=== PATIENT | female | born 1995 | race Caucasian/White ===

== ENCOUNTER → 2016-12-13 14:35 | Observation (INO) ==
[2016-12-13 12:28] VITALS: BP 115/60
--- NOTE | 2016-12-13 12:32 | OB/GYN Progress Note ---
Date of Encounter: 12/13/16 Time of Encounter: 12:30 - Assessment and Plan (1) 33 weeks gestation of Current Visit: Yes Status: Acute NST reactive. (2) Headache Current Visit: Yes Status: Acute PIH labs WNL. Pt reports TRAMMELL has improved with 1 dose fioricet. Discharge home with preeclampsia precautions. Qualifiers: Headache type: new daily persistent Qualified Code(s): G44.52 - New daily persistent headache (NDPH) (3) Nonspecific pain in the neck region Current Visit: Yes Status: Acute Comfort measures discussed. (4) Heartburn during in third trimester Current Visit: Yes Status: Acute Pt reporting pain in neck radiating to chest on arrival to triage. She reports the chest discomfort has resolved following GI cocktail. Precautions given and pt instructed to present to ER for chest pain, SOB, or palpitations. Discharge home with pepcid rx. (5) Anemia complicating in third trimester Current Visit: Yes Status: Acute Hgb 8. Pt is currently taking 1 flinstone vitamin per day. Discharge home with iron rx. Pt states she will take the iron. Subjective - Subjective Interval history: 21 year-old presenting at 33w4d with c/o headache, neck pain radiating to chest, and SOB. Pt has history of preeclampsia. Antepartum ROS: movement normal, no loss of fluid, no vaginal bleeding, no contractions Objective - Vital Signs Vital Signs: Vital Signs Temp Pulse Resp BP Pulse Ox 12/13/16 12:25 97.7 F 99 20 115/60 99 Intake and Output 12/12/16 12/13/16 12/13/16 23:59 07:59 15:59 Other: Weight 116.5 kg Patient Weight 12/13/16 23:59 Weight 116.5 kg - Exam FHR: category 1 FHR comments: NST reactive Auscultation: bilateral: normal Abdomen: Present: soft, gravid. Absent: tenderness Uterus: Absent: tenderness
[2016-12-13 12:34] LABS: Basophils % 0.4 %; Eosinophils # 0.1 K/mcL (0.0-0.6); Eosinophils % 0.7 %; Hematocrit 26.7 % (35.3-44.9); Immature Granulocytes % 2.6 % (0-4); Lymphocytes # 1.3 K/mcL (0.6-4.6); Lymphocytes % 11.3 %; Mean Corpuscular Hemoglobin 22.9 pg (28.0-33.3); Mean Corpuscular Volume 76.3 fL (83.0-100.0); Mean Platelet Volume 10.3 fL (9.4-12.4); Monocytes # 0.9 K/mcL (0.0-1.3); Monocytes % 7.9 %; Neutrophils # 8.7 K/mcL (1.6-8.9); Nucleated Red Blood Cells 0.3 /100 WBC (0); Platelet Count 207 K/mcL (140-400); Red Cell Distribution Width 16.5 % (11.5-14.5); Segmented Neutrophils % 77.1 %
[2016-12-13 12:45] LABS: Alanine Aminotransferase 9 Units/L (0-55); Aspartate Amino Transferase 9 Units/L (5-34); BUN/Creatinine Ratio 8 (6-26); Blood Urea Nitrogen 5 mg/dL (7-20); Lactate Dehydrogenase 161 Units/L (159-327); Uric Acid 4.3 mg/dL (2.6-6.0); eGFR For African Americans > 60 (> 60); eGFR For Non-African Americans > 60 (> 60)
[2016-12-13 13:15] LABS: Protein/Creatinine Ratio,Urine 0.16 mg/mg (0-0.20)
[~2016-12-13 14:35] MED LIST: Acetaminophen/Butalbital/CaffeineTABLET PO PRN; GI Cocktail 40 ML EACH PO ONE
== END | disposition home or self-care (01) ==
LOC: 1NENULAB
PROVIDERS: ADMIT Obstetrics & Gynecology; ATTEND Obstetrics & Gynecology

== ENCOUNTER 2017-01-20 07:29 | Inpatient (IN) ==
[2017-01-20] MEDS ORDERED: CeFAZolin Pre 3,000 MG/100 ML 3,000 MG/100 ML BAG IVPB ONE (08:10)
[2017-01-20] MEDS ORDERED: Metoclopramide 10 MG/2 ML VIAL IVP ONE (08:10)
[2017-01-20] MEDS ORDERED: Famotidine 20 MG/2 ML VIAL IVP ONE (08:10)
[2017-01-20] MEDS ORDERED: Naloxone 0.4 MG/ML INJ IVP PRN (08:13)
[2017-01-20] MEDS: Ringers Solution, Lactated 1,000 ML IVC ONE ×2 (08:20→09:37)
--- NOTE | 2017-01-20 09:22 | Anesthesia Evaluation PreOp ---
Date of Encounter: 01/20/17 Time of Encounter: 09:20 - Past History Planned Operation: Repeat Cardiac History: Denies any Significant Hx Pulmonary History: Denies Any Significant HX BIOLOGY ADJUNCT INSTRUCTOR History: Denies Any Significant HX Other Medical History: Denies Any Significant HX Anesthesia History: No Prior Anesthetic Complications, Past Anesthesia (C- Section x 2 (SAB)) : Yes (, IUP 39 weeks) Alcohol Use: none Drug use: none Medications and Allergies Pedi Mv No.79/Ferrous Fumarate [Flintstones with Iron Tab Chew] 1 tab PO DAILY 12/13/16 [History] 3 Allergy/AdvReac Type Severity Reaction Status Date / Time Sulfa (Sulfonamide Allergy Mild Nausea Verified 07/07/15 08:13 Antibiotics) nitrofurantoin Allergy Nausea Verified 07/07/15 08:13 [From Macrobid] - Meds/Allergy Pre-op Review Medications Reviewed: Yes Allergies Reviewed: Yes Beta Blockers on Current Med List: No Anesthesia Results - Labs Laboratory Tests 01/08/16 01/08/16 12/13/16 17:13 17:13 12:00 WBC 11.3 H Hgb 8.0 L Hct 26.7 L Plt Count 207 PT 12.4 H INR 1.1 Sodium 139 Potassium 3.8 BUN Creatinine 12/13/16 12:00 WBC Hgb Hct Plt Count PT INR Sodium Potassium BUN 5 L Creatinine 0.64 Anesthesia Exam 3 Temp 97.3 BP 122/70 Pulse 102 Height: 5'5''/1.65 m Weight: 263 lbs/119.5 kg NPO (# of Hours): 8 Pain Scale: 0 Pain Scale Used: Numeric (1 - 10) - HEENT Pupil (Motor): EOMI Mallampati: II Teeth: Normal Oral Opening: Greater than 3 - BIOLOGY ADJUNCT INSTRUCTOR LOC: Oriented BIOLOGY ADJUNCT INSTRUCTOR Motor: Normal RUE, Normal LUE, Normal RLE, Normal LLE, Normal Face BIOLOGY ADJUNCT INSTRUCTOR Sensory: Normal: RUE, LUE, RLE, LLE, Face - Cardiac Rhythm: Regular Murmur: None - Pulmonary Breath Sounds: bilateral Clear Respiratory Effort: Symmetrical Anesthesia Assess/Plan ASA Score: 2 Modified [place] Scale for Level of Consciousness: Cooperative, oriented, and tranquil Anesthetic Plan: Regional Monitoring Plan: Standard Monitors Recovery Plan: PACU
--- NOTE | 2017-01-20 09:23 | OB/GYN History & Physical ---
Date of Encounter: 01/20/17 Time of Encounter: 09:00 Assessment and Plan (1) 39 weeks gestation of Current visit: No Status: Acute Admit to Labor and Delivery Epidural Primary Low Transverse with Dr. Bailey History of Present Illness Chief complaint: Repeat C/S HPI: Ms. Sethi is a 21 year old female, , 39+0, presenting to L&D for repeat c- section with Dr. Bailey. Pt is Rh negative, pt states she received Rhogam prophylaxis during her pre- visit 11/10. Labs: Positive: GBS Negative: HIV, Hepatitis B, Syphilis, N.Gonorrhoeae, C. Trachomatis Immune: Rubella Non-immune: VZV Blood type: A- Past Med Surg Social Fam HX - Past Medical History Medical history: no medical history Psychiatric history: no psych history - Past Surgical History Surgical History: - Social History Smoking Status: Never smoker Smokeless Tobacco Status: No Alcohol use: none Drug use: none - Family History Mother Adopted: No Family Member Ethnicity: Non- Living Status: Still Living Hx Family Endocrine Disorder: Yes (diabetic) Obstetrical History - Pregnancies : 3 Medications and Allergies Pedi Mv No.79/Ferrous Fumarate [Flintstones with Iron Tab Chew] 1 tab PO DAILY 12/13/16 [History] 3 Allergy/AdvReac Type Severity Reaction Status Date / Time Sulfa (Sulfonamide Allergy Mild Nausea Verified 07/07/15 08:13 Antibiotics) nitrofurantoin Allergy Nausea Verified 07/07/15 08:13 [From Macrobid] Exam - Constitutional Constitutional: well developed, well nourished, no acute distress - HEENT HEENT: Normocephaly - Neck Neck exam: full ROM - Lungs Respiratory exam: CTAB - Cardiovascular Cardiovascular exam: +S1, +S2 - Abdomen Abdomen: Present: bowel sounds normal - Extremities Extremities exam: full ROM Results Result Diagrams: 01/20/17 08:23 All other labs normal. - Attending Attestation Pt seen and examined. Agree with above. Will proceed with rpt . Questions anserwed and consent obtained.
[2017-01-20] MEDS ORDERED: *HR* FentaNYL (PF) 100 MCG/2 ML VIAL ONE (09:28)
[2017-01-20] MEDS ORDERED: *HR* Phenylephrine 10 MG/ML VIAL ONE (09:28)
[2017-01-20] MEDS ORDERED: EPHEDrine 50 MG/ML VIAL ONE (09:28)
[2017-01-20] MEDS ORDERED: *HR* Morphine Sulfate/PF 5 MG/10 ML AMPUL ONE (09:28)
[2017-01-20] MEDS ORDERED: Ringers Solution, Lactated 1,000 ML ONE ×3 (09:34→09:35)
[2017-01-20] MEDS ORDERED: *HR* Oxytocin 10 UNIT/ML VIAL IM ONE ×2 (09:34)
[2017-01-20 09:35] LABS: Basophils % 0.3 %; Eosinophils # 0.1 K/mcL (0.0-0.6); Eosinophils % 0.7 %; Hematocrit 30.2 % (35.3-44.9); Hemoglobin 8.7 g/dL (11.5-15.4); Immature Granulocytes % 1.8 % (0-4); Lymphocytes # 1.5 K/mcL (0.6-4.6); Lymphocytes % 14.7 %; Mean Corpuscular HGB Conc 28.8 g/dL (31.6-35.5); Mean Corpuscular Hemoglobin 21.6 pg (28.0-33.3); Mean Corpuscular Volume 74.9 fL (83.0-100.0); Mean Platelet Volume 10.3 fL (9.4-12.4); Monocytes # 0.8 K/mcL (0.0-1.3); Monocytes % 7.9 %; Neutrophils # 7.5 K/mcL (1.6-8.9); Nucleated Red Blood Cells 0.3 /100 WBC (0); Platelet Count 220 K/mcL (140-400); Red Blood Count 4.03 M/mcL (3.82-4.97); Red Cell Distribution Width 18.3 % (11.5-14.5); Segmented Neutrophils % 74.6 %
[2017-01-20] MEDS ORDERED: Ondansetron 4 MG/2 ML VIAL ONE (12:06)
[2017-01-20] MEDS ORDERED: *HR* OxyCODONE/APAP 5/325 TABLET PO PRN (12:15)
[2017-01-20] MEDS ORDERED: *HR* Meperidine 25 MG/ML SYRINGE IVP PRN (12:15)
[2017-01-20] MEDS ORDERED: Ondansetron 4 MG/2 ML VIAL IVP PRN (12:15)
[2017-01-20] MEDS ORDERED: Ondansetron 4 MG/2 ML VIAL IVP ONE (12:15)
--- NOTE | 2017-01-20 12:20 | Anesthesia Procedures ---
Date of Encounter: 01/20/17 Time of Encounter: 11:20 Procedures: Anesthesia - Epidural/Spinal Patient ID/Chart reviewed: Yes Patient examined: Yes OB Eval: Gestational age: 39 OB Eval: : 3 OB Eval: Hx Para: 2 OB Eval: Contractions: Non-stressed pattern Consent Obtained: Yes Supplemental Oxygen: Nasal Cannula Supplemental Oxygen Rate (L/min): 2 Site Prep: Aseptic Technique, Sterile prep and drape, Povidone-Iodine 1% Patient position: upright Local Anesthetic: Lidocaine 1% Amount of Local Anesthetic used: 3 Interspace Used: L3-L4 Loss of Resistance (BELTRAN): No Blood: No CSF: Yes Paresthesia: Yes Procedure: Bupivicaine 0.75% 1.6ml, fentanyl 10 mcg, duramorph 0.25mg FHT stable throughout VSS see nursing notes
--- NOTE | 2017-01-20 12:37 | OB/GYN Procedure Note ---
Section - Date of procedure: 01/20/17 Preop diagnosis: desires repeat Post-op diagnosis: same Procedure: section, primary low transverse Surgeon: Jj Bailey Estimated blood loss (cc): 500 Anesthesia Type: Spinal section complications: none Disposition: L&D Recovery Room Specimens: Placenta - (s) A Infant Delivery Date: 01/20/17 Infant Delivery Time: 11:55 Presentation: vertex Position: OA Gender: Female Viability: Viable Pounds: 9 Ounces: 5 at 1 minute: 7 at 5 minutes: 8 Shoulder Dystocia: not encountered Specimens collected: cord blood Placenta: spontaneous Cord: 3 umbilical vessels - Narrative Narrative: Status post spontaneous repeat section at term. Patient's was uncomplicated. She was aware of operative risks and signed appropriate consent. Description of procedure: Patient was taken operating room where spinal anesthesia was administered. She prepped draped in usual sterile fashion bladder was drained with Carrillo catheter. Scalpel was used to make a pain still skin incision which was sharply taken down the rectus fascia. Fascia was incised the midline fascial incision was extended bilaterally. Plan was developed and rectus muscle next fascia was opened distally rectus muscles divided and peritoneum was entered sharply. Bladder blade was placed and bladder flap was developed and lower uterine segment. Scalpel was used to make a low transverse uterine incision was extended bluntly bilaterally. Infant was delivered from vertex presentation. Cord was clamped and cut and infant was handed nurse personnel in attendance. Placenta was delivered manually and uterine cavity was massaged free of all residual tissue. Uterus was closed 0 Vicryl running lock stitch. Hemostasis was ensured fascia was closed 0 Vicryl in running manner. Closed the fascia again irrigations performed hemostasis was ensured skin edges were approximate 4-0 Vicryl. All sponge counts counts are correct patient was taken recovery in good condition.
[2017-01-20] MEDS ORDERED: Oxytocin 20 units/ LR 1000 mL 20 UNIT/1,000 ML BAG IVC ONE (19:33)
--- NOTE | 2017-01-20 20:07 | Anesthesia Evaluation Post Op ---
Date of Encounter: 01/20/17 Time of Encounter: 20:00 - Vital Signs Vital Signs: Vital Signs/O2 Sat/Glucose, Most Current Temp Pulse Resp BP Pulse Ox 01/20/17 19:51 97.4 F L 64 14 92/53 98 01/20/17 18:00 98.0 F 82 18 97/60 01/20/17 17:00 98.2 F 83 16 98/59 97 - Lungs Lungs: Clear Ascult./Percussion - Airway Airway: Non-obstructed - Cardiovascular Regular Rate - Mental Status Mental Status: Alert & Oriented, Answers Appropriately - Pain Pain Scale: 0 - Nausea Vomiting Nausea Vomiting: Not Present - Hydration Hydration: Tolerates oral liquids, Carrillo catheter - Discharge PostOp Status: Discharge Patient to home
[2017-01-21 07:52] VITALS: BP 104/68
--- NOTE | 2017-01-21 10:35 | Discharge Summary ---
Date of Encounter: 01/21/17 Time of Encounter: 10:36 - Discharge Diagnosis (1) 39 weeks gestation of Priority: Secondary Status: Acute (2) S/P repeat low transverse Priority: Primary Status: Acute Comments: Ding well, will discharge home. Will give Percocet and Motrin. - Discharge Medications Prescriptions: Ibuprofen [Motrin] 600 mg PO Q6HR PRN #40 tab PRN Reason: post op pain OxyCODONE/APAP 5/325 [Percocet 5/325 MG] 1 each PO Q6HR PRN #40 tab PRN Reason: post op pain Home Medications: Pedi Mv No.79/Ferrous Fumarate [Flintstones with Iron Tab Chew] 1 tab PO DAILY 12/13/16 [History] Ibuprofen [Motrin] 600 mg PO Q6HR PRN #40 tab 01/21/17 [Rx] OxyCODONE/APAP 5/325 [Percocet 5/325 MG] 1 each PO Q6HR PRN #40 tab 01/21/17 [Rx ] Allergies/Adverse Reactions: 3 Allergy/AdvReac Type Severity Reaction Status Date / Time Sulfa (Sulfonamide Allergy Mild Nausea Verified 07/07/15 08:13 Antibiotics) nitrofurantoin Allergy Nausea Verified 07/07/15 08:13 [From Macrobid] Data Procedures and tests throughout hospitalization: Laboratory Tests 01/20/17 01/20/17 08:23 12:55 WBC 10.1 RBC 4.03 Hgb 8.7 L Hct 30.2 L MCV 74.9 L MCH 21.6 L MCHC 28.8 L RDW 18.3 H Plt Count 220 MPV 10.3 Immature Gran % 1.8 Seg Neutrophils % 74.6 Lymphocytes % 14.7 Monocytes % 7.9 Eosinophils % 0.7 Basophils % 0.3 Neutrophils # 7.5 Lymphocytes # 1.5 Monocytes # 0.8 Eosinophils # 0.1 Basophils # 0.0 Nucleated RBCs/100 WBC 0.3 H Screen NEGATIVE Baby's Blood Type A RH POSITIVE Mother's Blood Type A RH NEGATIVE Rhogam Indicated YES Rhogam Req for Mother 1 Labs on day of discharge: Labs from last 24 hours 01/20/17 12:55 Screen NEGATIVE Baby's Blood Type A RH POSITIVE Mother's Blood Type A RH NEGATIVE Rhogam Indicated YES Rhogam Req for Mother 1 - Impressions Doing well POD #1. Ambulating without difficulty. Good pain control. Regular diet. Desires d/c this evening. Date of admission: 01/20/17 07:29 Primary care physician: Irma Bueno, - Patient Status Disposition: Home, Self-Care Condition: Good Functional capacity at discharge: independent ambulation Overall status at discharge: patient is progressing back to baseline - Discharge Instructions Follow Up With: Jj Bailey MD [Partnered Physician] - - Diet and Activity Activity: increase activity as tolerated Diet: regular diet Hospital Course SOURCING INTERN Time Attestation: Total time spent providing and/or coordinating discharge services: Exam - Constitutional Vitals: Temp Pulse Resp BP Pulse Ox 98.2 F 83 12 104/68 98 01/21/17 07:51 01/21/17 07:51 01/21/17 07:51 01/21/17 07:51 01/21/17 07:51 General appearance IM: A&O X 3 - Respiratory Respiratory exam: Present: CTAB - Cardiovascular Cardiovascular exam IM: Present: RRR - GI/Abdominal GI/Abdominal exam IM: normal bowel sounds Incision: normal, intact, dressed - Uterus Position: 2 Fingers Below Umbilicus - Extremities Exam Extremities exam IM: Present: full ROM - Neurological Exam Neurological exam: oriented X3 - VTE Documentation of Mechanical Device: Intermittent pneumatic compression device
== END 2017-01-21 14:30 | disposition home or self-care (01) | DRG 540 ==
LOC: 1NENULAB 07:29 → 1NENUOBS 15:02
PROVIDERS: ADMIT Obstetrics & Gynecology; ATTEND Obstetrics & Gynecology